=== PATIENT | male | born 1985 | race African-American/Black ===

== ENCOUNTER 2019-10-07 08:53 | Emergency (ER) | payer OTHER ==
[~2019-10-07] VITALS: Ht 182.9 cm; Wt 110.7 kg
[2019-10-07] MEDS ORDERED: AZITHROMYCIN 2250 MG PO (09:46)
[2019-10-07 09:48] VITALS: BP 148/79
== END 2019-10-07 09:49 | disposition home or self-care (01) ==
LOC: M.ERS 08:53
DX: J03.90 Acute tonsillitis, unspecified (principal); J02.0 Streptococcal pharyngitis